=== PATIENT | male | born 1965 | race Caucasian/White ===

== ENCOUNTER 2019-07-24 11:16 | Emergency (ER) | payer SELFPAY ==
[~2019-07-24] VITALS: Ht 187.9 cm; Wt 83.9 kg
[2019-07-24 12:12] LABS: BASO # 0.1 10*3/uL (0.0-0.1); BASO % 0.5 % (0.0-1.0); EOS # 0.4 10*3/uL (0.0-0.4); EOS % 4.6 % (1.0-4.0); HEMATOCRIT 41.6 % (42.0-52.0); HEMOGLOBIN 14.1 g/dl (14.0-18.0); LYMPH # 2.3 10*3/uL (1.3-4.4); LYMPH % 24.4 % (27.0-41.0); MEAN CELL VOLUME 98.6 fl (80.0-94.0); MEAN CORPUSCULAR HGB 33.4 pg (27.0-31.0); MEAN CORPUSCULAR HGB CONC 33.9 g/dl (33.0-37.0); MONO # 1.1 10*3/uL (0.1-1.0); MONO % 11.6 % (3.0-9.0); NEUT # 5.6 10*3/uL (2.3-7.9); NEUT % 58.6 % (47.0-73.0); PLATELET COUNT AUTOMATED 372 10*3/uL (130-400); RED BLOOD COUNT 4.22 10*6/uL (4.50-5.90); RED CELL DISTRI WIDTH 14.6 % (0-14.5); WHITE BLOOD COUNT 9.5 10*3/uL (4.8-10.8)
[2019-07-24 12:36] LABS: ALBUMIN 3.5 gm/dl (3.1-4.5); ALKALINE PHOSPHATASE 104 U/L (45-117); BUN 11 mg/dl (7-24); CHLORIDE 102 mmol/L (98-107); CREATININE 0.71 mg/dL (0.70-1.30); POTASSIUM 4.4 mmol/L (3.5-5.1); SGOT/AST 24 IU/L (3-35); SGPT/ALT 33 U/L (12-78); SODIUM 135 mmol/L (136-145); TOTAL PROTEIN 7.1 gm/dL (6.4-8.2)
[2019-07-24 12:39] LABS: TROPONIN I < 0.015 ng/ml (<0.045)
== END 2019-07-24 14:21 | disposition home or self-care (01) ==
LOC: ED 11:16
PROVIDERS: Nurse Practitioner Family
DX: S00.212A Abrasion of left eyelid and periocular area, initial encounter (principal); R42 Dizziness and giddiness; W22.8XXA Striking against or struck by other objects, initial encounter; Y93.H2 Activity, gardening and landscaping; Y92.89 Other specified places as the place of occurrence of the external cause; Y99.8 Other external cause status

== ENCOUNTER → 2020-04-26 | Outpatient (CLI) | payer OTHER ==
[2020-04-26 09:24] LABS: HEMATOCRIT 43.1 % (42.0-52.0); MEAN CELL VOLUME 98.4 fl (80.0-94.0); MEAN CORPUSCULAR HGB 33.1 pg (27.0-31.0); MEAN CORPUSCULAR HGB CONC 33.6 g/dl (33.0-37.0); MEAN PLATELET VOLUME 10.4 fl (9.6-12.3); RED BLOOD COUNT 4.38 10*6/uL (4.50-5.90); RED CELL DISTRI WIDTH 14.1 % (0-14.5); WHITE BLOOD COUNT 13.9 10*3/uL (4.8-10.8)
[2020-04-26 09:49] LABS: ALBUMIN 3.5 gm/dl (3.1-4.5); BUN 11 mg/dl (7-24); CHLORIDE 99 mmol/L (98-107); CHOLESTEROL 218 mg/dL (<200); CREATININE 0.78 mg/dL (0.70-1.30); GAMMA GLUTAMYL TRANSPEPTIDASE 59 U/L (15-85); HDL CHOLESTEROL 69 mg/dl (40-60); LDL CHOLESTEROL 134 mg/dL (9-159); POTASSIUM 4.7 mmol/L (3.5-5.1); SGOT/AST 22 IU/L (3-35); SGPT/ALT 28 U/L (12-78); SODIUM 134 mmol/L (136-145); TOTAL PROTEIN 7.5 gm/dL (6.4-8.2); TRIGLYCERIDES 74 mg/dl (<150); VLDL CHOLESTEROL 15 mg/dL (6-40)
[2020-04-26 09:55] LABS: ALKALINE PHOSPHATASE 131 U/L (45-117); FREE T4 1.12 ng/dl (0.76-1.46)
== END | disposition home or self-care (01) ==
LOC: LAB 08:38
PROVIDERS: Family Medicine
DX: E10.9 Type 1 diabetes mellitus without complications (principal); E78.00 Pure hypercholesterolemia, unspecified; E55.9 Vitamin D deficiency, unspecified; R53.83 Other fatigue

== ENCOUNTER → 2020-04-27 | Outpatient (CLI) | payer OTHER | END | disposition home or self-care (01) | LOC: LAB 10:43 | PROVIDERS: Family Medicine | DX: E11.9 Type 2 diabetes mellitus without complications (principal); R53.83 Other fatigue; E55.9 Vitamin D deficiency, unspecified; E78.00 Pure hypercholesterolemia, unspecified ==

== ENCOUNTER → 2020-05-28 | Outpatient (CLI) | payer OTHER | END | disposition home or self-care (01) | LOC: RAD 12:19 | DX: M54.5 Low back pain (principal) ==

== ENCOUNTER → 2020-07-10 | Outpatient (CLI) | payer OTHER | END | disposition home or self-care (01) | LOC: RAD 12:27 | PROVIDERS: ATTEND Family Medicine | DX: G89.11 Acute pain due to trauma (principal) ==

== ENCOUNTER → 2020-09-18 | Outpatient (CLI) | payer OTHER | END | disposition home or self-care (01) | LOC: COVID19 12:31 | PROVIDERS: ATTEND Family Medicine | DX: U07.1 COVID-19 (principal) ==

== ENCOUNTER → 2020-10-29 | Outpatient (CLI) | payer OTHER | END | disposition home or self-care (01) | LOC: RAD 08:37 | PROVIDERS: ATTEND Family Medicine | DX: R06.02 Shortness of breath (principal); R05 Cough; R06.2 Wheezing; Z86.16 Personal history of COVID-19 ==

== ENCOUNTER 2021-05-20 06:03 | Emergency (ER) | payer OTHER ==
[~2021-05-20] VITALS: Ht 187.9 cm; Wt 86.2 kg
[2021-05-20] MEDS ORDERED: NAPROXEN250 MG PO (06:57)
[2021-05-20] MEDS ORDERED: METHOCARBAMOL750 M1 PO (06:57)
[2021-07-02] MEDS ORDERED: ASPIRIN ADULT L81 M1 PO (08:34)
[2021-07-02] MEDS ORDERED: LIPITOR40 MG PO (08:34)
[2021-07-02] MEDS ORDERED: CALCIUM 600+D1 EAC1 PO (08:34)
[2021-07-02] MEDS ORDERED: CHOLESTYRAMINE378 GM PO (08:35)
[2021-07-02] MEDS ORDERED: D3-200050 MCG PO (08:35)
[2021-07-02] MEDS ORDERED: VITAMIN B-122000 MCG PO (08:36)
[2021-07-02] MEDS ORDERED: FEXOFENADINE H180 M1 PO (08:37)
[2021-07-02] MEDS ORDERED: NEURONTIN300 MG PO (08:37)
[2021-07-02] MEDS ORDERED: LEVOTHYROXINE100 MC2 PO (08:38)
[2021-07-02] MEDS ORDERED: OMEPRAZOLE MAGN20 MG PO (08:40)
[2021-07-02] MEDS ORDERED: LISINOPRIL20 MG PO (08:40)
[2021-07-02] MEDS ORDERED: CIALIS2.5 MG PO (08:42)
== END 2021-05-20 07:07 | disposition home or self-care (01) ==
LOC: ED 06:03
DX: S29.012A Strain of muscle and tendon of back wall of thorax, initial encounter (principal); W19.XXXA Unspecified fall, initial encounter; Y93.89 Activity, other specified; Y92.89 Other specified places as the place of occurrence of the external cause; Y99.8 Other external cause status

== ENCOUNTER → 2021-07-02 | Outpatient (CLI) | payer OTHER ==
[~2021-07-02] MED LIST: ASPIRIN ADULT L81 M1 PO; CALCIUM 600+D1 EAC1 PO; CHOLESTYRAMINE378 GM PO; CIALIS2.5 MG PO; D3-200050 MCG PO; FEXOFENADINE H180 M1 PO; LEVOTHYROXINE100 MC2 PO; LIPITOR40 MG PO; LISINOPRIL20 MG PO; METHOCARBAMOL750 M1 PO; NAPROXEN250 MG PO; NEURONTIN300 MG PO; OMEPRAZOLE MAGN20 MG PO; VITAMIN B-122000 MCG PO
[2021-07-02 10:26] LABS: BASO # 0.1 10*3/uL (0.0-0.1); BASO % 0.5 % (0.0-1.0); EOS # 0.6 10*3/uL (0.0-0.4); EOS % 4.8 % (1.0-4.0); HEMATOCRIT 42.7 % (42.0-52.0); LYMPH # 1.7 10*3/uL (1.3-4.4); LYMPH % 13.1 % (27.0-41.0); MEAN CELL VOLUME 94.9 fl (80.0-94.0); MEAN CORPUSCULAR HGB 32.4 pg (27.0-31.0); MEAN CORPUSCULAR HGB CONC 34.2 g/dl (33.0-37.0); MEAN PLATELET VOLUME 9.9 fl (9.6-12.3); MONO # 1.3 10*3/uL (0.1-1.0); MONO % 10.3 % (3.0-9.0); PLATELET COUNT AUTOMATED 409 10*3/uL (130-400); WHITE BLOOD COUNT 12.6 10*3/uL (4.8-10.8)
[2021-07-02 10:31] LABS: ALBUMIN 3.2 gm/dl (3.1-4.5); BUN 8 mg/dl (7-24); CHLORIDE 98 mmol/L (98-107); CHOLESTEROL 212 mg/dL (<200); CREATININE 0.74 mg/dL (0.70-1.30); SGOT/AST 29 IU/L (3-35); SGPT/ALT 32 U/L (12-78); SODIUM 132 mmol/L (136-145); TOTAL PROTEIN 7.3 gm/dL (6.4-8.2); TRIGLYCERIDES 98 mg/dl (<150)
[2021-07-02 10:34] LABS: ALKALINE PHOSPHATASE 138 U/L (45-117); LDL CHOLESTEROL 129 mg/dL (9-159)
== END | disposition home or self-care (01) ==
LOC: CARD 00:01 → LAB 00:01 → CARD 07:00
PROVIDERS: ATTEND Internal Medicine Cardiovascular Disease
DX: I05.0 Rheumatic mitral stenosis (principal); R94.31 Abnormal electrocardiogram [ECG] [EKG]

== ENCOUNTER → 2021-10-16 | Outpatient (CLI) | payer OTHER | END | disposition home or self-care (01) | LOC: COVID19 15:12 | PROVIDERS: ATTEND Podiatrist Foot & Ankle Surgery | DX: Z11.52 Encounter for screening for COVID-19 (principal) ==

== ENCOUNTER → 2021-11-29 | Outpatient (CLI) | payer OTHER | END | disposition home or self-care (01) | LOC: RAD 12:44 | PROVIDERS: ATTEND Family Medicine | DX: M50.323 Other cervical disc degeneration at C6-C7 level (principal); M25.511 Pain in right shoulder; G89.29 Other chronic pain; R05.9 Cough, unspecified; R09.89 Other specified symptoms and signs involving the circulatory and respiratory systems ==

== ENCOUNTER → 2022-02-13 | Outpatient (CLI) | payer OTHER ==
[2022-02-13 09:43] LABS: BUN 5 mg/dl (7-24); CHLORIDE 99 mmol/L (98-107); CREATININE 0.73 mg/dL (0.70-1.30); POTASSIUM 5.1 mmol/L (3.5-5.1); SODIUM 134 mmol/L (136-145)
== END | disposition home or self-care (01) ==
LOC: LAB 08:21
PROVIDERS: ATTEND Internal Medicine Endocrinology, Diabetes & Metabolism
DX: E27.8 Other specified disorders of adrenal gland (principal)

== ENCOUNTER → 2022-02-14 | Outpatient (CLI) | payer OTHER | END | disposition home or self-care (01) | LOC: LAB 00:02 | PROVIDERS: ATTEND Internal Medicine Endocrinology, Diabetes & Metabolism | DX: E27.8 Other specified disorders of adrenal gland (principal) ==

== ENCOUNTER → 2022-03-14 | Outpatient (CLI) | payer OTHER | END | disposition home or self-care (01) | LOC: LAB 07:59 | PROVIDERS: ATTEND Internal Medicine Endocrinology, Diabetes & Metabolism | DX: E27.8 Other specified disorders of adrenal gland (principal) ==

== ENCOUNTER → 2022-04-03 | Outpatient (CLI) | payer OTHER | END | disposition home or self-care (01) | LOC: RAD 11:57 | PROVIDERS: ATTEND Family Medicine | DX: M79.89 Other specified soft tissue disorders (principal); L02.612 Cutaneous abscess of left foot ==

== ENCOUNTER → 2022-04-11 | Outpatient (CLI) | payer OTHER | END | disposition home or self-care (01) | LOC: LAB 09:49 | PROVIDERS: ATTEND Internal Medicine Endocrinology, Diabetes & Metabolism | DX: E27.8 Other specified disorders of adrenal gland (principal) ==

== ENCOUNTER → 2022-07-04 | Outpatient (CLI) | payer OTHER ==
[2022-07-08 21:06] LABS: NORMETANEPHRINE, PLASMA 55.4 pg/mL (0.0-244.0)
[2022-07-09 07:30] LABS: METANEPHRINE, PLASMA <10.0 pg/mL (0.0-88.0)
[2022-07-11 04:07] LABS: ALDOSTERONE, SERUM 2.6 ng/dL (0.0-30.0)
== END | disposition home or self-care (01) ==
LOC: LAB 07:59
PROVIDERS: ATTEND Surgery
DX: E27.9 Disorder of adrenal gland, unspecified (principal); D35.01 Benign neoplasm of right adrenal gland; D35.02 Benign neoplasm of left adrenal gland

== ENCOUNTER → 2022-07-06 | Outpatient (CLI) | payer OTHER ==
[2022-07-09 01:06] LABS: NORMETANEPHRINE URINE 152 ug/L (Undefined); URINE METANEPHRINE 31 ug/L (Undefined); URINE METANEPHRINE, 24 HR 93 ug/24 hr (58-276); URINE NORMETANEPHRINE 24HR 456 ug/24 hr (156-729)
[2022-07-15 16:07] LABS: CORTISOL, FREE URINE 20 ug/L (Undefined); CORTISOL, FREE, UG/24HR, URINE 60 ug/24 hr (5-64)
== END | disposition home or self-care (01) ==
LOC: LAB 10:37
PROVIDERS: ATTEND Surgery
DX: D35.01 Benign neoplasm of right adrenal gland (principal); D35.02 Benign neoplasm of left adrenal gland; E27.9 Disorder of adrenal gland, unspecified

== ENCOUNTER → 2022-07-08 | Outpatient (CLI) | payer OTHER | END | disposition home or self-care (01) | LOC: LAB 09:24 | PROVIDERS: ATTEND Surgery | DX: E27.9 Disorder of adrenal gland, unspecified (principal) ==

== ENCOUNTER → 2022-07-20 | Outpatient (CLI) | payer OTHER | END | disposition home or self-care (01) | LOC: LAB 03:00 | PROVIDERS: ATTEND Surgery | DX: E24.9 Cushing's syndrome, unspecified (principal) ==

== ENCOUNTER → 2022-07-21 | Outpatient (CLI) | payer OTHER | END | disposition home or self-care (01) | LOC: LAB 03:00 | PROVIDERS: ATTEND Surgery | DX: E24.9 Cushing's syndrome, unspecified (principal) ==

== ENCOUNTER → 2022-07-22 | Outpatient (CLI) | payer OTHER | END | disposition home or self-care (01) | LOC: LAB 03:00 | PROVIDERS: ATTEND Surgery | DX: E24.9 Cushing's syndrome, unspecified (principal) ==

== ENCOUNTER 2022-08-03 13:36 | Emergency (ER) | payer OTHER ==
[2022-08-03 15:10] LABS: BASO # 0.1 10*3/uL (0.0-0.1); BASO % 0.4 % (0.0-1.0); EOS # 0.4 10*3/uL (0.0-0.4); EOS % 3.1 % (1.0-4.0); HEMATOCRIT 40.8 % (42.0-52.0); LYMPH # 1.6 10*3/uL (1.3-4.4); LYMPH % 14.1 % (27.0-41.0); MEAN CELL VOLUME 92.5 fl (80.0-94.0); MEAN CORPUSCULAR HGB 31.3 pg (27.0-31.0); MEAN CORPUSCULAR HGB CONC 33.8 g/dl (33.0-37.0); MEAN PLATELET VOLUME 9.5 fl (9.6-12.3); MONO # 1.2 10*3/uL (0.1-1.0); MONO % 10.2 % (3.0-9.0); NEUT # 8.2 10*3/uL (2.3-7.9); NEUT % 71.9 % (47.0-73.0); PLATELET COUNT AUTOMATED 440 10*3/uL (130-400); RED BLOOD COUNT 4.41 10*6/uL (4.50-5.90); RED CELL DISTRI WIDTH 14.9 % (0-14.5); WHITE BLOOD COUNT 11.5 10*3/uL (4.8-10.8)
[2022-08-03 15:25] LABS: ALKALINE PHOSPHATASE 154 U/L (45-117); BUN 3 mg/dl (7-24); CHLORIDE 101 mmol/L (98-107); CREATININE 0.64 mg/dL (0.70-1.30); LIPASE 45 U/L (73-393); POTASSIUM 4.4 mmol/L (3.5-5.1); SGOT/AST 24 IU/L (3-35); SGPT/ALT 31 U/L (12-78); SODIUM 136 mmol/L (136-145); TOTAL PROTEIN 7.2 gm/dL (6.4-8.2)
[2022-08-03 16:33] LABS: BILIRUBIN Negative (Negative); BLOOD Negative (Negative); CLARITY Clear (Clear); COLOR Yellow (Yellow); GLUCOSE 3+ (Negative); KETONE Negative (Negative); LEUKO ESTERASE Negative (Negative); NITRITE Negative (Negative); SPECIFIC GRAVITY 1.015 (1.001-1.030); UROBILINOGEN 0.2 E.U./dl (0.0-1.0)
[2022-08-03 16:43] LABS: EPITHELIAL CELLS 0-2; WBC 0-2 wbc/hpf (0-5)
== END 2022-08-03 18:08 | disposition home or self-care (01) ==
LOC: ED 13:36
PROVIDERS: Emergency Medicine
DX: K91.89 Other postprocedural complications and disorders of digestive system (principal); K56.7 Ileus, unspecified; Z98.890 Other specified postprocedural states; Z79.899 Other long term (current) drug therapy; Z79.82 Long term (current) use of aspirin; Z90.89 Acquired absence of other organs

== ENCOUNTER → 2022-08-11 | Outpatient (CLI) | payer OTHER ==
[2022-08-11 15:48] LABS: FREE T4 1.19 ng/dl (0.76-1.46)
[2022-08-11 15:55] LABS: THYROID STIM HORMONE (HS) 2.27 uIU/ml (0.358-4.75)
== END | disposition home or self-care (01) ==
LOC: LAB 14:50
PROVIDERS: ATTEND Internal Medicine Endocrinology, Diabetes & Metabolism
DX: E10.65 Type 1 diabetes mellitus with hyperglycemia (principal); E03.9 Hypothyroidism, unspecified

== ENCOUNTER → 2022-09-12 | Outpatient (CLI) | payer OTHER ==
[2022-09-12 08:28] LABS: BUN 8 mg/dl (7-24); CHLORIDE 99 mmol/L (98-107); CREATININE 0.73 mg/dL (0.70-1.30); POTASSIUM 4.5 mmol/L (3.5-5.1); SODIUM 135 mmol/L (136-145)
== END | disposition home or self-care (01) ==
LOC: LAB 07:46
PROVIDERS: ATTEND Internal Medicine Endocrinology, Diabetes & Metabolism
DX: E10.65 Type 1 diabetes mellitus with hyperglycemia (principal); E27.8 Other specified disorders of adrenal gland

== ENCOUNTER → 2022-10-10 | Outpatient (CLI) | payer MEDICARE, MEDICAID | END | disposition home or self-care (01) | LOC: LAB 08:01 | PROVIDERS: ATTEND Internal Medicine Endocrinology, Diabetes & Metabolism | DX: E27.8 Other specified disorders of adrenal gland (principal); Z79.899 Other long term (current) drug therapy ==

== ENCOUNTER 2023-02-26 10:13 | Emergency (ER) | payer MEDICARE, MEDICAID ==
[~2023-02-26] VITALS: Ht 187.9 cm; Wt 90.7 kg
[2023-02-26] MEDS ORDERED: SERTRALINE HYD100 MG PO (10:31)
[2023-02-26] MEDS ORDERED: HYDROCODONE-AC1 EAC1 PO (12:18)
== END 2023-02-26 12:23 | disposition home or self-care (01) ==
LOC: ED 10:13
DX: S22.41XA Multiple fractures of ribs, right side, initial encounter for closed fracture (principal); Z79.899 Other long term (current) drug therapy; Z79.82 Long term (current) use of aspirin; Z90.89 Acquired absence of other organs; Z98.890 Other specified postprocedural states; W18.39XA Other fall on same level, initial encounter; Y93.89 Activity, other specified; Y92.89 Other specified places as the place of occurrence of the external cause; Y99.8 Other external cause status

== ENCOUNTER 2023-08-13 23:59 | Emergency (ER) | payer MEDICARE, MEDICAID ==
[~2023-08-13] VITALS: Ht 187.9 cm; Wt 83.9 kg
[~2023-08-13 23:59] MED LIST changes: +CILOSTAZOL100 MG PO; +HYDROCODONE-AC1 EAC1 PO; +NORVASC5 MG PO; +OMNICEF300 MG PO; +PREDNISONE50 MG PO; +SERTRALINE HYD100 MG PO; +VITAMIN C500 M4 PO; +ZITHROMAX250 MG PO
== END 2023-08-14 05:20 | disposition home or self-care (01) ==
LOC: ED 23:59
DX: S93.402A Sprain of unspecified ligament of left ankle, initial encounter (principal); E11.9 Type 2 diabetes mellitus without complications; I10 Essential (primary) hypertension; E78.00 Pure hypercholesterolemia, unspecified; Z96.41 Presence of insulin pump (external) (internal); Z98.890 Other specified postprocedural states; F17.210 Nicotine dependence, cigarettes, uncomplicated; W01.0XXA Fall on same level from slipping, tripping and stumbling without subsequent striking against object, initial encounter; Y93.89 Activity, other specified; Y92.009 Unspecified place in unspecified non-institutional (private) residence as the place of occurrence of the external cause; Y99.8 Other external cause status

== ENCOUNTER → 2023-09-30 | Outpatient (CLI) | payer MEDICARE, MEDICAID ==
[2023-09-30 11:34] LABS: BASO # 0.1 10*3/uL (0.0-0.1); BASO % 0.6 % (0.0-1.0); EOS # 0.5 10*3/uL (0.0-0.4); EOS % 5.5 % (1.0-4.0); LYMPH # 1.9 10*3/uL (1.3-4.4); LYMPH % 19.8 % (27.0-41.0); MEAN CELL VOLUME 88.4 fl (80.0-94.0); MEAN CORPUSCULAR HGB 29.9 pg (27.0-31.0); MEAN CORPUSCULAR HGB CONC 33.8 g/dl (33.0-37.0); MEAN PLATELET VOLUME 9.8 fl (9.6-12.3); MONO % 10.6 % (3.0-9.0); NEUT # 6.2 10*3/uL (2.3-7.9); NEUT % 63.2 % (47.0-73.0); PLATELET COUNT AUTOMATED 484 10*3/uL (130-400); RED BLOOD COUNT 4.41 10*6/uL (4.50-5.90); RED CELL DISTRI WIDTH 16.1 % (0-14.5); WHITE BLOOD COUNT 9.8 10*3/uL (4.8-10.8)
[2023-09-30 11:53] LABS: ALKALINE PHOSPHATASE 140 U/L (46-116); BUN 8 mg/dl (9-23); CHLORIDE 105 mmol/L (98-107); POTASSIUM 4.3 mmol/L (3.4-5.1); SGPT/ALT 28 U/L (5-49); TOTAL PROTEIN 6.9 gm/dL (6.0-8.0)
== END | disposition home or self-care (01) ==
LOC: LAB 10:58
PROVIDERS: ATTEND Nurse Practitioner
DX: E11.9 Type 2 diabetes mellitus without complications (principal); K74.60 Unspecified cirrhosis of liver; K86.9 Disease of pancreas, unspecified; D37.8 Neoplasm of uncertain behavior of other specified digestive organs; I85.00 Esophageal varices without bleeding; K74.00 Hepatic fibrosis, unspecified

== ENCOUNTER → 2024-07-27 | Outpatient (CLI) | payer MEDICARE, MEDICAID ==
[2024-07-27 11:09] LABS: FREE T4 1.41 ng/dl (0.89-1.76)
== END | disposition home or self-care (01) ==
LOC: LAB 10:11
PROVIDERS: Internal Medicine Endocrinology, Diabetes & Metabolism; ATTEND Nurse Practitioner
DX: E11.9 Type 2 diabetes mellitus without complications (principal); E03.9 Hypothyroidism, unspecified

== ENCOUNTER 2024-09-22 17:13 | Inpatient (IN) | payer MEDICARE ==
[~2024-09-22] VITALS: Ht 185.4 cm; Wt 93.6 kg
[2024-09-22 17:18] VITALS: BP 127/58
[2024-09-22] MEDS ORDERED: fentaNYL CITRATE/PF 50 MCG/ML SYRINGE IV ONE (17:55)
[2024-09-22] MEDS ORDERED: SODIUM CHLORIDE 0.9% 1,000 ML IV ONE (17:55)
[2024-09-22 18:07] LABS: BASO # 0.1 10*3/uL (0.0-0.1); BASO % 0.5 % (0.0-1.0); EOS # 0.5 10*3/uL (0.0-0.4); HEMATOCRIT 38.2 % (42.0-52.0); MEAN CELL VOLUME 90.5 fl (80.0-94.0); MEAN CORPUSCULAR HGB 30.1 pg (27.0-31.0); MEAN CORPUSCULAR HGB CONC 33.2 g/dl (33.0-37.0); MEAN PLATELET VOLUME 9.3 fl (9.6-12.3); MONO # 0.9 10*3/uL (0.1-1.0); MONO % 10.2 % (3.0-9.0); NEUT # 6.4 10*3/uL (2.3-7.9); NEUT % 69.2 % (47.0-73.0); PLATELET COUNT AUTOMATED 447 10*3/uL (130-400); RED BLOOD COUNT 4.22 10*6/uL (4.50-5.90); RED CELL DISTRI WIDTH 16.2 % (0-14.5); WHITE BLOOD COUNT 9.2 10*3/uL (4.8-10.8)
[2024-09-22] MEDS ORDERED: ACETAMINOPHEN 325 MG TAB PO PRN (18:10)
[2024-09-22] MEDS ORDERED: Magnesium Hydroxide 30 ML UDC PO PRN (18:10)
[2024-09-22] MEDS ORDERED: BISACODYL 10 MG SUPP R PRN (18:10)
[2024-09-22] MEDS ORDERED: TEMAZEPAM 15 MG CAP PO PRN (18:10)
[2024-09-22] MEDS ORDERED: Acetaminophen/Hydrocodone 5 MG/325 MG TABLET PO PRN (18:10)
[2024-09-22] MEDS ORDERED: BISACODYL 5 MG TAB PO PRN (18:10)
[2024-09-22] MEDS ORDERED: MORPHINE Sulfate 2 MG/ML SYR IV PRN (18:10)
[2024-09-22] MEDS ORDERED: Ondansetron Hydrochloride 4 MG/2 ML VIAL IV PRN (18:10)
[2024-09-22] MEDS ORDERED: ACETAMINOPHEN 650 MG SUPP R PRN (18:10)
[2024-09-22] MEDS ORDERED: MULTIVITAMINS1 EAC6 PO (18:12)
[2024-09-22] MEDS ORDERED: DEXTROSE 10 % IN WATER 250 ML IV PRN (18:20)
[2024-09-22 18:22] LABS: BUN 8 mg/dl (9-23); CHLORIDE 99 mmol/L (98-107); POTASSIUM 4.5 mmol/L (3.4-5.1)
[2024-09-22 21:30] VITALS: BP 142/56
[2024-09-22] MEDS ORDERED: INSULIN LISPRO 1 UNIT/0.01 ML SQ SCH (22:00)
[2024-09-22] MEDS ORDERED: ADMELOG100 UNIT/1 SQ (22:02)
[2024-09-23] VITALS (10 sets, daily range): BP systolic 114–176; BP diastolic 46–79
[2024-09-23] MEDS ORDERED: Pantoprazole Sodium 40 MG TAB PO SCH (06:00)
[2024-09-23] MEDS ORDERED: Levothyroxine Sodium 112 MCG TAB PO SCH (06:00)
[2024-09-23 06:08] LABS: ALKALINE PHOSPHATASE 110 U/L (46-116); BUN 10 mg/dl (9-23); CHLORIDE 101 mmol/L (98-107); CHOLESTEROL 107 mg/dL (<200); LDL CHOLESTEROL 49 mg/dL (9-159); POTASSIUM 4.2 mmol/L (3.4-5.1); SGPT/ALT 20 U/L (5-49); TOTAL PROTEIN 6.2 gm/dL (6.0-8.0); TRIGLYCERIDES 61 mg/dl (<150)
[2024-09-23 06:12] LABS: BASO % 0.3 % (0.0-1.0); EOS # 0.2 10*3/uL (0.0-0.4); EOS % 1.7 % (1.0-4.0); HEMATOCRIT 34.6 % (42.0-52.0); MEAN CELL VOLUME 89.9 fl (80.0-94.0); MEAN CORPUSCULAR HGB 30.1 pg (27.0-31.0); MEAN CORPUSCULAR HGB CONC 33.5 g/dl (33.0-37.0); MEAN PLATELET VOLUME 10.5 fl (9.6-12.3); MONO # 1.1 10*3/uL (0.1-1.0); MONO % 10.8 % (3.0-9.0); NEUT # 6.9 10*3/uL (2.3-7.9); NEUT % 70.6 % (47.0-73.0); PLATELET COUNT AUTOMATED 398 10*3/uL (130-400); RED BLOOD COUNT 3.85 10*6/uL (4.50-5.90); RED CELL DISTRI WIDTH 16.4 % (0-14.5); WHITE BLOOD COUNT 9.8 10*3/uL (4.8-10.8)
[2024-09-23 06:36] LABS: VITAMIN D, 25-HYDROXY 70.4 ng/mL (30-100)
[2024-09-23] MEDS ORDERED: TRANEXAMIC ACID IN NACL,ISO-OS 100 ML IV ONE ×2 (08:00→08:52)
[2024-09-23] MEDS ORDERED: ACETAMINOPHEN 100 ML IV ONE (08:00)
[2024-09-23] MEDS ORDERED: ceFAZolin sodium/sodium chlor 20 ML IV ONE ×2 (08:00→08:52)
[2024-09-23] MEDS ORDERED: Lactated Ringer's Solution 1,000 ML IV ONE ×2 (08:00→09:23)
[2024-09-23] MEDS ORDERED: Ropivacaine Hydrochloride 5 MG/ML 20 ML AMP IJ ONE (08:15)
[2024-09-23] MEDS ORDERED: Bupivacaine Hydrochloride/Ep 10 ML VIAL ONE (08:23)
[2024-09-23] MEDS ORDERED: ATORVASTATIN CALCIUM 40 MG TABLET PO SCH (10:00)
[2024-09-23] MEDS ORDERED: Cholecalciferol 2,000 UNIT TABLET (50 MCG) PO SCH (10:00)
[2024-09-23] MEDS ORDERED: Sertraline Hydrochloride 50 MG TAB PO SCH (10:00)
[2024-09-23] MEDS ORDERED: LISINOPRIL 20 MG TAB PO SCH (10:00)
[2024-09-23] MEDS ORDERED: CILOSTAZOL 100 MG TAB PO SCH ×2 (10:00→10:23)
[2024-09-23] MEDS ORDERED: LORazepam 0.5 MG TAB PO PRN (12:25)
[2024-09-23] MEDS ORDERED: Acetaminophen/Oxycodone Hydr 7.5 MG/325 MG TABLET PO PRN (13:35)
[2024-09-23] MEDS ORDERED: ceFAZolin sodium 1 GM in SYRINGE INFUSION 10 ML IV SCH (14:00)
[2024-09-23] MEDS ORDERED: ASPIRIN ENTERIC COATED 81 MG TAB PO SCH (18:00)
[2024-09-24] VITALS: BP 131/50
[2024-09-24 06:37] LABS: BUN 13 mg/dl (9-23); CHLORIDE 100 mmol/L (98-107); POTASSIUM 3.9 mmol/L (3.4-5.1)
[2024-09-24 07:39] LABS: BASO % 0.3 % (0.0-1.0); EOS # 0.3 10*3/uL (0.0-0.4); EOS % 2.6 % (1.0-4.0); HEMATOCRIT 32.2 % (42.0-52.0); MEAN CELL VOLUME 89.4 fl (80.0-94.0); MEAN CORPUSCULAR HGB 30.6 pg (27.0-31.0); MEAN CORPUSCULAR HGB CONC 34.2 g/dl (33.0-37.0); MEAN PLATELET VOLUME 11.2 fl (9.6-12.3); MONO % 9.8 % (3.0-9.0); NEUT # 7.6 10*3/uL (2.3-7.9); NEUT % 75.5 % (47.0-73.0); PLATELET COUNT AUTOMATED 344 10*3/uL (130-400); RED CELL DISTRI WIDTH 16.1 % (0-14.5)
[2024-09-24 08:00] VITALS: BP 120/98
[2024-09-24] MEDS ORDERED: DEXTROSE 10 % IN WATER 250 ML IV PRN (08:35)
[2024-09-24] MEDS ORDERED: INSULIN PUMP (PT'S PUMP FROM HOME) SC SCH (09:25)
[2024-09-24] MEDS ORDERED: INSULIN LISPRO 1 UNIT/0.01 ML SQ SCH (11:30)
[2024-09-24 12:00] VITALS: BP 119/84
[2024-09-24] MEDS ORDERED: Acetaminophen/Oxycodone Hydr 7.5 MG/325 MG TABLET PO PRN (13:44)
[2024-09-24] MEDS ORDERED: Albuterol Sulf/Ipratropium 3 ML VIAL NEB PRN (13:45)
[2024-09-24 16:00] VITALS: BP 99/45
[2024-09-24 20:00] VITALS: BP 102/54; BP 91/45
[2024-09-25] VITALS: BP 130/45
[2024-09-25 06:40] LABS: BASO % 0.3 % (0.0-1.0); EOS # 0.2 10*3/uL (0.0-0.4); EOS % 2.4 % (1.0-4.0); MEAN CELL VOLUME 88.8 fl (80.0-94.0); MEAN CORPUSCULAR HGB 30.1 pg (27.0-31.0); MEAN CORPUSCULAR HGB CONC 33.9 g/dl (33.0-37.0); MEAN PLATELET VOLUME 10.5 fl (9.6-12.3); MONO # 0.7 10*3/uL (0.1-1.0); MONO % 9.8 % (3.0-9.0); NEUT # 5.6 10*3/uL (2.3-7.9); NEUT % 73.7 % (47.0-73.0); PLATELET COUNT AUTOMATED 330 10*3/uL (130-400); RED BLOOD COUNT 3.49 10*6/uL (4.50-5.90); RED CELL DISTRI WIDTH 16.2 % (0-14.5); WHITE BLOOD COUNT 7.6 10*3/uL (4.8-10.8)
[2024-09-25 06:59] LABS: BUN 11 mg/dl (9-23); CHLORIDE 99 mmol/L (98-107); POTASSIUM 3.9 mmol/L (3.4-5.1)
[2024-09-25 08:00] VITALS: BP 144/68
[2024-09-25 11:52] VITALS: BP 141/56
[2024-09-25] MEDS ORDERED: Midazolam Hydrochloride 2 MG/2 ML VIAL IV ONE (14:16)
[2024-09-25] MEDS ORDERED: PROPOFOL 200 MG/20 ML VIAL IV ONE (14:16)
[2024-09-25] MEDS ORDERED: SEVOFLURANE 250 ML BOT INH ONE (14:16)
[2024-09-25] MEDS ORDERED: MAGNESIUM SULFATE 1 GM/2 ML VIAL IV ONE (14:16)
[2024-09-25] MEDS ORDERED: Phenylephrine Hydrochloride 1 MG/10 ML SYRINGE IV ONE (14:16)
[2024-09-25] MEDS ORDERED: Ketamine Hydrochloride 500 MG/10 ML VIAL IV ONE (14:16)
[2024-09-25] MEDS ORDERED: Ketorolac Tromethamine 30 MG/ML VIAL IV ONE (14:16)
[2024-09-25] MEDS ORDERED: SUGAMMADEX SODIUM 200 MG/2 ML VIAL IV ONE (14:16)
[2024-09-25] MEDS ORDERED: ROCURONIUM BROMIDE 50 MG/5 ML SYRINGE IV ONE (14:16)
[2024-09-25 16:00] VITALS: BP 152/55
[2024-09-25 20:00] VITALS: BP 159/68
[2024-09-26] VITALS: BP 141/82
[2024-09-26 06:17] LABS: BUN 10 mg/dl (9-23); CHLORIDE 96 mmol/L (98-107)
[2024-09-26 06:39] LABS: BASO % 0.1 % (0.0-1.0); EOS # 0.1 10*3/uL (0.0-0.4); EOS % 1.1 % (1.0-4.0); HEMATOCRIT 29.7 % (42.0-52.0); MEAN CELL VOLUME 88.4 fl (80.0-94.0); MEAN CORPUSCULAR HGB 30.4 pg (27.0-31.0); MEAN CORPUSCULAR HGB CONC 34.3 g/dl (33.0-37.0); MEAN PLATELET VOLUME 11.1 fl (9.6-12.3); MONO # 0.8 10*3/uL (0.1-1.0); MONO % 8.2 % (3.0-9.0); NEUT % 81.3 % (47.0-73.0); PLATELET COUNT AUTOMATED 330 10*3/uL (130-400); RED BLOOD COUNT 3.36 10*6/uL (4.50-5.90); WHITE BLOOD COUNT 9.8 10*3/uL (4.8-10.8)
[2024-09-26 08:00] VITALS: BP 154/65
[2024-09-26 12:00] VITALS: BP 135/59
[2024-09-26 16:00] VITALS: BP 132/57
[2024-09-27] VITALS: BP 110/54
[2024-09-27 06:30] LABS: BASO % 0.2 % (0.0-1.0); EOS # 0.3 10*3/uL (0.0-0.4); EOS % 3.1 % (1.0-4.0); HEMATOCRIT 30.2 % (42.0-52.0); MEAN CELL VOLUME 88.8 fl (80.0-94.0); MEAN CORPUSCULAR HGB 30.3 pg (27.0-31.0); MEAN CORPUSCULAR HGB CONC 34.1 g/dl (33.0-37.0); MEAN PLATELET VOLUME 11.1 fl (9.6-12.3); MONO # 1.2 10*3/uL (0.1-1.0); MONO % 12.9 % (3.0-9.0); NEUT # 6.7 10*3/uL (2.3-7.9); NEUT % 72.6 % (47.0-73.0); PLATELET COUNT AUTOMATED 373 10*3/uL (130-400); RED CELL DISTRI WIDTH 15.8 % (0-14.5); WHITE BLOOD COUNT 9.2 10*3/uL (4.8-10.8)
[2024-09-27 06:32] LABS: BUN 17 mg/dl (9-23); CHLORIDE 93 mmol/L (98-107); POTASSIUM 5.1 mmol/L (3.4-5.1)
[2024-09-27 08:00] VITALS: BP 149/63
[2024-09-27] MEDS ORDERED: SODIUM CHLORIDE 1 GM TAB PO SCH (11:00)
[2024-09-27 12:00] VITALS: BP 106/55
[2024-09-27] MEDS ORDERED: OXYCODONE-ACET1 EACH PO (12:24)
[2024-09-27] MEDS ORDERED: SODIUM CHLORI1000 M5 PO (12:24)
== END 2024-09-27 14:10 | DRG 481 ==
LOC: ED 17:13 → EDHOLD 18:03 → 4E 18:03
PROVIDERS: Nurse Practitioner Family; Orthopaedic Surgery; Student in an Organized Health Care Education/Training Program; ADMIT Family Medicine; ATTEND Family Medicine
PROC: 0QS636Z Reposition Right Upper Femur with Intramedullary Internal Fixation Device, Percutaneous Approach (ICD-10-PCS; principal; 2024-09-23)
PROC: 3E0T3BZ Introduction of Anesthetic Agent into Peripheral Nerves and Plexi, Percutaneous Approach (ICD-10-PCS; 2024-09-23)
DX: S72.141A Displaced intertrochanteric fracture of right femur, initial encounter for closed fracture (principal); E87.1 Hypo-osmolality and hyponatremia; E11.40 Type 2 diabetes mellitus with diabetic neuropathy, unspecified; G56.03 Carpal tunnel syndrome, bilateral upper limbs; D64.9 Anemia, unspecified; J44.9 Chronic obstructive pulmonary disease, unspecified; E11.51 Type 2 diabetes mellitus with diabetic peripheral angiopathy without gangrene; F17.210 Nicotine dependence, cigarettes, uncomplicated; K21.9 Gastro-esophageal reflux disease without esophagitis; E03.9 Hypothyroidism, unspecified; E55.9 Vitamin D deficiency, unspecified; F10.11 Alcohol abuse, in remission; W01.0XXA Fall on same level from slipping, tripping and stumbling without subsequent striking against object, initial encounter; I10 Essential (primary) hypertension; I25.10 Atherosclerotic heart disease of native coronary artery without angina pectoris; F41.9 Anxiety disorder, unspecified; Z82.5 Family history of asthma and other chronic lower respiratory diseases; Z83.3 Family history of diabetes mellitus; Z79.899 Other long term (current) drug therapy; Z88.8 Allergy status to other drugs, medicaments and biological substances; Z79.82 Long term (current) use of aspirin; Z79.4 Long term (current) use of insulin; Y93.89 Activity, other specified; Y92.89 Other specified places as the place of occurrence of the external cause; Y99.8 Other external cause status

== ENCOUNTER → 2024-10-11 | Outpatient (CLI) | payer MEDICARE ==
[~2024-10-11] MED LIST changes: +ADMELOG100 UNIT/1 SQ; +MULTIVITAMINS1 EAC6 PO; +OXYCODONE-ACET1 EACH PO; +SODIUM CHLORI1000 M5 PO
== END | disposition home or self-care (01) ==
LOC: ORTHO 02:21
PROVIDERS: ATTEND Orthopaedic Surgery
DX: S72.141A Displaced intertrochanteric fracture of right femur, initial encounter for closed fracture (principal); X58.XXXA Exposure to other specified factors, initial encounter; Y93.89 Activity, other specified; Y92.89 Other specified places as the place of occurrence of the external cause; Y99.8 Other external cause status

== ENCOUNTER → 2024-11-03 | Outpatient (CLI) | payer MEDICARE | END | disposition home or self-care (01) | LOC: RAD 10-30 13:30 | PROVIDERS: ATTEND Orthopaedic Surgery | DX: Z13.820 Encounter for screening for osteoporosis (principal); M81.0 Age-related osteoporosis without current pathological fracture ==

== ENCOUNTER → 2024-11-22 | Outpatient (CLI) | payer MEDICARE | END | disposition home or self-care (01) | LOC: ORTHO 00:50 | PROVIDERS: ATTEND Orthopaedic Surgery | DX: S72.141D Displaced intertrochanteric fracture of right femur, subsequent encounter for closed fracture with routine healing (principal); X58.XXXD Exposure to other specified factors, subsequent encounter ==

== ENCOUNTER → 2024-12-20 | Outpatient (CLI) | payer MEDICARE | END | disposition home or self-care (01) | LOC: ORTHO 11:31 | PROVIDERS: ATTEND Orthopaedic Surgery | DX: S72.141D Displaced intertrochanteric fracture of right femur, subsequent encounter for closed fracture with routine healing (principal); I70.90 Unspecified atherosclerosis; X58.XXXD Exposure to other specified factors, subsequent encounter ==

== ENCOUNTER → 2025-02-15 | Outpatient (CLI) | payer MEDICARE | END | disposition home or self-care (01) | LOC: WOUNDCARE 02:37 | PROVIDERS: ATTEND Nurse Practitioner Family | DX: L89.524 Pressure ulcer of left ankle, stage 4 (principal); L89.620 Pressure ulcer of left heel, unstageable; I87.2 Venous insufficiency (chronic) (peripheral); E10.51 Type 1 diabetes mellitus with diabetic peripheral angiopathy without gangrene; I11.0 Hypertensive heart disease with heart failure; I50.9 Heart failure, unspecified; I25.10 Atherosclerotic heart disease of native coronary artery without angina pectoris; E03.9 Hypothyroidism, unspecified; J44.9 Chronic obstructive pulmonary disease, unspecified; K74.60 Unspecified cirrhosis of liver; F17.210 Nicotine dependence, cigarettes, uncomplicated; Z98.890 Other specified postprocedural states; Z79.82 Long term (current) use of aspirin; Z79.899 Other long term (current) drug therapy ==

== ENCOUNTER → 2025-02-19 | Outpatient (CLI) | payer MEDICARE | END | disposition home or self-care (01) | LOC: US 11:30 | PROVIDERS: ATTEND Orthopaedic Surgery | DX: S81.802A Unspecified open wound, left lower leg, initial encounter (principal); I10 Essential (primary) hypertension; E11.9 Type 2 diabetes mellitus without complications; Z72.0 Tobacco use; X58.XXXA Exposure to other specified factors, initial encounter; Y93.89 Activity, other specified; Y92.89 Other specified places as the place of occurrence of the external cause; Y99.8 Other external cause status; M79.605 Pain in left leg; I77.1 Stricture of artery; I73.9 Peripheral vascular disease, unspecified ==

== ENCOUNTER → 2025-03-05 | Outpatient (CLI) | payer MEDICARE | END | disposition home or self-care (01) | LOC: WOUNDCARE 01:08 | PROVIDERS: ATTEND Nurse Practitioner Family | DX: L89.524 Pressure ulcer of left ankle, stage 4 (principal); R60.9 Edema, unspecified; I11.0 Hypertensive heart disease with heart failure; I50.9 Heart failure, unspecified; I87.2 Venous insufficiency (chronic) (peripheral); E10.51 Type 1 diabetes mellitus with diabetic peripheral angiopathy without gangrene; E03.9 Hypothyroidism, unspecified; E78.5 Hyperlipidemia, unspecified; K74.60 Unspecified cirrhosis of liver; J44.9 Chronic obstructive pulmonary disease, unspecified; F17.210 Nicotine dependence, cigarettes, uncomplicated; Z79.4 Long term (current) use of insulin; Z79.82 Long term (current) use of aspirin; Z79.899 Other long term (current) drug therapy; Z98.890 Other specified postprocedural states ==

== ENCOUNTER → 2025-03-16 | Outpatient (CLI) | payer MEDICARE | LOC: WOUNDCARE 01:11 | PROVIDERS: ATTEND Nurse Practitioner Family | DX: L89.524 Pressure ulcer of left ankle, stage 4 (principal); L89.620 Pressure ulcer of left heel, unstageable; E10.51 Type 1 diabetes mellitus with diabetic peripheral angiopathy without gangrene; I87.2 Venous insufficiency (chronic) (peripheral); I11.0 Hypertensive heart disease with heart failure; I50.9 Heart failure, unspecified; J44.9 Chronic obstructive pulmonary disease, unspecified; I25.10 Atherosclerotic heart disease of native coronary artery without angina pectoris; E78.5 Hyperlipidemia, unspecified; E03.9 Hypothyroidism, unspecified; K70.30 Alcoholic cirrhosis of liver without ascites; K21.9 Gastro-esophageal reflux disease without esophagitis; F17.210 Nicotine dependence, cigarettes, uncomplicated; Z98.890 Other specified postprocedural states; Z79.82 Long term (current) use of aspirin; Z79.899 Other long term (current) drug therapy ==

== ENCOUNTER → 2025-03-23 | Outpatient (CLI) | payer MEDICARE | END | disposition home or self-care (01) | LOC: WOUNDCARE 00:53 | PROVIDERS: ATTEND Nurse Practitioner Family | DX: L89.524 Pressure ulcer of left ankle, stage 4 (principal); L89.620 Pressure ulcer of left heel, unstageable; I87.2 Venous insufficiency (chronic) (peripheral); R60.9 Edema, unspecified; E10.51 Type 1 diabetes mellitus with diabetic peripheral angiopathy without gangrene; I11.0 Hypertensive heart disease with heart failure; I50.9 Heart failure, unspecified; J44.9 Chronic obstructive pulmonary disease, unspecified; I25.10 Atherosclerotic heart disease of native coronary artery without angina pectoris; E78.5 Hyperlipidemia, unspecified; E03.9 Hypothyroidism, unspecified; K21.9 Gastro-esophageal reflux disease without esophagitis; K70.30 Alcoholic cirrhosis of liver without ascites; F17.210 Nicotine dependence, cigarettes, uncomplicated; Z98.890 Other specified postprocedural states; Z79.82 Long term (current) use of aspirin; Z79.899 Other long term (current) drug therapy ==

== ENCOUNTER → 2025-04-05 | Outpatient (CLI) | payer MEDICARE | END | disposition home or self-care (01) | LOC: WOUNDCARE 02:03 | PROVIDERS: ATTEND Nurse Practitioner Family | DX: L89.524 Pressure ulcer of left ankle, stage 4 (principal); E10.51 Type 1 diabetes mellitus with diabetic peripheral angiopathy without gangrene; I87.2 Venous insufficiency (chronic) (peripheral); R60.9 Edema, unspecified; I11.0 Hypertensive heart disease with heart failure; I50.9 Heart failure, unspecified; J44.9 Chronic obstructive pulmonary disease, unspecified; I25.10 Atherosclerotic heart disease of native coronary artery without angina pectoris; E03.9 Hypothyroidism, unspecified; K21.9 Gastro-esophageal reflux disease without esophagitis; K70.30 Alcoholic cirrhosis of liver without ascites; E78.5 Hyperlipidemia, unspecified; F17.210 Nicotine dependence, cigarettes, uncomplicated; Z98.890 Other specified postprocedural states; Z79.82 Long term (current) use of aspirin; Z79.899 Other long term (current) drug therapy ==

== ENCOUNTER → 2025-04-11 | Outpatient (CLI) | payer MEDICARE | END | disposition home or self-care (01) | LOC: ORTHO 01:21 | PROVIDERS: ATTEND Orthopaedic Surgery | DX: M25.872 Other specified joint disorders, left ankle and foot (principal); M79.672 Pain in left foot ==

== ENCOUNTER → 2025-04-18 | Outpatient (CLI) | payer MEDICARE | END | disposition home or self-care (01) | LOC: WOUNDCARE 01:35 → ZADV 14:32 → WOUNDCARE 14:39 | PROVIDERS: ATTEND Nurse Practitioner Family | DX: L89.524 Pressure ulcer of left ankle, stage 4 (principal); L89.620 Pressure ulcer of left heel, unstageable; E10.51 Type 1 diabetes mellitus with diabetic peripheral angiopathy without gangrene; I87.2 Venous insufficiency (chronic) (peripheral); R60.9 Edema, unspecified; I11.0 Hypertensive heart disease with heart failure; I50.9 Heart failure, unspecified; J44.9 Chronic obstructive pulmonary disease, unspecified; I25.10 Atherosclerotic heart disease of native coronary artery without angina pectoris; E03.9 Hypothyroidism, unspecified; K21.9 Gastro-esophageal reflux disease without esophagitis; K70.30 Alcoholic cirrhosis of liver without ascites; F17.210 Nicotine dependence, cigarettes, uncomplicated; Z98.890 Other specified postprocedural states; Z79.82 Long term (current) use of aspirin; Z79.899 Other long term (current) drug therapy ==

== ENCOUNTER → 2025-05-23 | Emergency (ER) | payer MEDICARE ==
[~2025-05-23] VITALS: Wt 77.1 kg
[~2025-05-23] MED LIST changes: +ANORO ELLIPTA1 EACH INH; +CREON DR 36,001 EAC1 PO; +Lidocaine Hydrochloride 30 ML VIAL SC ONE; +Lidocaine Hydrochloride 5 ML AMP ONE; +METOPROLOL SUC100 M1 PO; +NATURE'S BLEND F1 MG PO; +NICODERM CQ1 EACH TD; +OXYCODONE HCL (IR) 10 MG TABLET PO ONE; +Ondansetron Hydrochloride 4 MG TAB PO ONE; +PANCREAZE PO; +REMODULIN SQ; +ROSUVASTATIN CA10 MG PO; +SILDENAFIL20 M1 PO; +TORSEMIDE20 MG PO; +VITAMIN B150 MG PO
[2025-05-23 23:59] LABS: BASO # 0.1 10*3/uL (0.0-0.1); BASO % 0.8 % (0.0-1.0); EOS # 0.5 10*3/uL (0.0-0.4); EOS % 3.8 % (1.0-4.0); MEAN CELL VOLUME 89.3 fl (80.0-94.0); MEAN CORPUSCULAR HGB 29.2 pg (27.0-31.0); MEAN PLATELET VOLUME 9.9 fl (9.6-12.3); MONO # 0.9 10*3/uL (0.1-1.0); MONO % 6.7 % (3.0-9.0); NEUT # 10.8 10*3/uL (2.3-7.9); NEUT % 76.8 % (47.0-73.0); NUCLEATED RED BLOOD CELL 0.0 % (0.0-0.0); NUCLEATED RED BLOOD CELL 0.0 10*3/uL (0.0-0.0); PLATELET COUNT AUTOMATED 518 10*3/uL (130-400); RED CELL DISTRI WIDTH 18.2 % (0-14.5)
[2025-05-24 00:20] LABS: BUN 9 mg/dl (9-23); SGPT/ALT 50 U/L (5-49)
== END ==
LOC: ED 23:17
PROVIDERS: Emergency Medicine
DX: S72.112A Displaced fracture of greater trochanter of left femur, initial encounter for closed fracture (principal); S01.01XA Laceration without foreign body of scalp, initial encounter; S91.002A Unspecified open wound, left ankle, initial encounter; I25.10 Atherosclerotic heart disease of native coronary artery without angina pectoris; E03.9 Hypothyroidism, unspecified; E11.51 Type 2 diabetes mellitus with diabetic peripheral angiopathy without gangrene; D53.9 Nutritional anemia, unspecified; F17.210 Nicotine dependence, cigarettes, uncomplicated; Z88.8 Allergy status to other drugs, medicaments and biological substances; Z79.899 Other long term (current) drug therapy; Z79.82 Long term (current) use of aspirin; Z79.4 Long term (current) use of insulin; W18.39XA Other fall on same level, initial encounter; Y93.89 Activity, other specified; Y92.89 Other specified places as the place of occurrence of the external cause; Y99.8 Other external cause status

== ENCOUNTER → 2025-06-12 | Outpatient (CLI) | payer MEDICARE ==
[~2025-06-12] MED LIST changes: -Lidocaine Hydrochloride 30 ML VIAL SC ONE; -Lidocaine Hydrochloride 5 ML AMP ONE; -OXYCODONE HCL (IR) 10 MG TABLET PO ONE; -Ondansetron Hydrochloride 4 MG TAB PO ONE
== END | disposition home or self-care (01) ==
LOC: WOUNDCARE 04:39
PROVIDERS: ATTEND Nurse Practitioner Family
DX: L89.524 Pressure ulcer of left ankle, stage 4 (principal); L89.620 Pressure ulcer of left heel, unstageable; S01.80XA Unspecified open wound of other part of head, initial encounter; R60.9 Edema, unspecified; I87.2 Venous insufficiency (chronic) (peripheral); E10.51 Type 1 diabetes mellitus with diabetic peripheral angiopathy without gangrene; I11.0 Hypertensive heart disease with heart failure; I50.9 Heart failure, unspecified; J44.9 Chronic obstructive pulmonary disease, unspecified; I25.10 Atherosclerotic heart disease of native coronary artery without angina pectoris; E78.5 Hyperlipidemia, unspecified; E03.9 Hypothyroidism, unspecified; K70.30 Alcoholic cirrhosis of liver without ascites; K21.9 Gastro-esophageal reflux disease without esophagitis; F17.210 Nicotine dependence, cigarettes, uncomplicated; Z98.890 Other specified postprocedural states; Z79.82 Long term (current) use of aspirin; Z79.899 Other long term (current) drug therapy; X58.XXXA Exposure to other specified factors, initial encounter; Y93.89 Activity, other specified; Y92.89 Other specified places as the place of occurrence of the external cause; Y99.8 Other external cause status

== ENCOUNTER → 2025-06-18 | Outpatient (CLI) | payer MEDICARE | END | disposition home or self-care (01) | LOC: WOUNDCARE 01:26 | PROVIDERS: ATTEND Nurse Practitioner Family | DX: L89.524 Pressure ulcer of left ankle, stage 4 (principal); L89.620 Pressure ulcer of left heel, unstageable; S01.80XD Unspecified open wound of other part of head, subsequent encounter; I87.2 Venous insufficiency (chronic) (peripheral); I11.0 Hypertensive heart disease with heart failure; I50.9 Heart failure, unspecified; E10.51 Type 1 diabetes mellitus with diabetic peripheral angiopathy without gangrene; E03.9 Hypothyroidism, unspecified; J44.9 Chronic obstructive pulmonary disease, unspecified; F17.210 Nicotine dependence, cigarettes, uncomplicated; E78.5 Hyperlipidemia, unspecified; Z79.82 Long term (current) use of aspirin; Z79.4 Long term (current) use of insulin; Z79.899 Other long term (current) drug therapy; Z98.890 Other specified postprocedural states; X58.XXXD Exposure to other specified factors, subsequent encounter ==

== ENCOUNTER → 2025-07-09 | Outpatient (CLI) | payer MEDICARE | END | disposition home or self-care (01) | LOC: WOUNDCARE 00:20 | PROVIDERS: ATTEND Nurse Practitioner Family | DX: L89.524 Pressure ulcer of left ankle, stage 4 (principal); L89.620 Pressure ulcer of left heel, unstageable; I87.2 Venous insufficiency (chronic) (peripheral); E10.51 Type 1 diabetes mellitus with diabetic peripheral angiopathy without gangrene; E03.9 Hypothyroidism, unspecified; I11.0 Hypertensive heart disease with heart failure; I50.9 Heart failure, unspecified; E78.5 Hyperlipidemia, unspecified; I25.10 Atherosclerotic heart disease of native coronary artery without angina pectoris; K74.60 Unspecified cirrhosis of liver; J44.9 Chronic obstructive pulmonary disease, unspecified; K21.9 Gastro-esophageal reflux disease without esophagitis; F17.210 Nicotine dependence, cigarettes, uncomplicated ==

== ENCOUNTER → 2025-07-16 | Outpatient (CLI) | payer MEDICARE | LOC: WOUNDCARE 01:42 | PROVIDERS: ATTEND Nurse Practitioner Family | DX: L89.524 Pressure ulcer of left ankle, stage 4 (principal); L89.620 Pressure ulcer of left heel, unstageable; E10.51 Type 1 diabetes mellitus with diabetic peripheral angiopathy without gangrene; I87.2 Venous insufficiency (chronic) (peripheral); K74.60 Unspecified cirrhosis of liver; E03.9 Hypothyroidism, unspecified; I11.0 Hypertensive heart disease with heart failure; I50.9 Heart failure, unspecified; J44.9 Chronic obstructive pulmonary disease, unspecified; E78.5 Hyperlipidemia, unspecified; I25.10 Atherosclerotic heart disease of native coronary artery without angina pectoris; K21.9 Gastro-esophageal reflux disease without esophagitis; F17.210 Nicotine dependence, cigarettes, uncomplicated ==

== ENCOUNTER → 2025-07-24 | Outpatient (CLI) | payer MEDICARE | END | disposition home or self-care (01) | LOC: WOUNDCARE 03:32 | PROVIDERS: ATTEND Nurse Practitioner Family | DX: L89.524 Pressure ulcer of left ankle, stage 4 (principal); L89.620 Pressure ulcer of left heel, unstageable; I87.2 Venous insufficiency (chronic) (peripheral); E10.51 Type 1 diabetes mellitus with diabetic peripheral angiopathy without gangrene; I11.0 Hypertensive heart disease with heart failure; I50.9 Heart failure, unspecified; E03.9 Hypothyroidism, unspecified; K21.9 Gastro-esophageal reflux disease without esophagitis; J44.9 Chronic obstructive pulmonary disease, unspecified; F17.210 Nicotine dependence, cigarettes, uncomplicated; Z98.890 Other specified postprocedural states; Z79.4 Long term (current) use of insulin; Z79.899 Other long term (current) drug therapy ==

== ENCOUNTER → 2025-07-31 | Outpatient (CLI) | payer MEDICARE | END | disposition home or self-care (01) | LOC: WOUNDCARE 02:16 | PROVIDERS: ATTEND Nurse Practitioner Family | DX: L89.524 Pressure ulcer of left ankle, stage 4 (principal); L89.620 Pressure ulcer of left heel, unstageable; I87.2 Venous insufficiency (chronic) (peripheral); E11.51 Type 2 diabetes mellitus with diabetic peripheral angiopathy without gangrene; I11.0 Hypertensive heart disease with heart failure; I50.9 Heart failure, unspecified; I25.10 Atherosclerotic heart disease of native coronary artery without angina pectoris; E03.9 Hypothyroidism, unspecified; E78.5 Hyperlipidemia, unspecified; K21.9 Gastro-esophageal reflux disease without esophagitis; J44.9 Chronic obstructive pulmonary disease, unspecified; F17.210 Nicotine dependence, cigarettes, uncomplicated; Z98.890 Other specified postprocedural states; Z79.84 Long term (current) use of oral hypoglycemic drugs; Z79.82 Long term (current) use of aspirin; Z79.899 Other long term (current) drug therapy ==

== ENCOUNTER → 2025-08-17 | Outpatient (CLI) | payer MEDICARE | END | disposition home or self-care (01) | LOC: WOUNDCARE 00:24 | PROVIDERS: ATTEND Nurse Practitioner Family | DX: L89.524 Pressure ulcer of left ankle, stage 4 (principal); L89.620 Pressure ulcer of left heel, unstageable; I87.2 Venous insufficiency (chronic) (peripheral); E10.51 Type 1 diabetes mellitus with diabetic peripheral angiopathy without gangrene; K74.60 Unspecified cirrhosis of liver; E03.9 Hypothyroidism, unspecified; I50.9 Heart failure, unspecified; I11.0 Hypertensive heart disease with heart failure; E78.5 Hyperlipidemia, unspecified; I25.10 Atherosclerotic heart disease of native coronary artery without angina pectoris; J44.9 Chronic obstructive pulmonary disease, unspecified; K21.9 Gastro-esophageal reflux disease without esophagitis; F17.210 Nicotine dependence, cigarettes, uncomplicated; F12.90 Cannabis use, unspecified, uncomplicated ==

== ENCOUNTER → 2025-09-12 | Outpatient (CLI) | payer MEDICARE ==
[2025-09-12 12:36] LABS: BASO # 0.0 10*3/uL (0.0-0.1); BASO % 0.4 % (0.0-1.0); EOS # 0.2 10*3/uL (0.0-0.4); EOS % 2.0 % (1.0-4.0); MEAN CELL VOLUME 77.6 fl (80.0-94.0); MEAN CORPUSCULAR HGB 24.3 pg (27.0-31.0); MEAN PLATELET VOLUME 9.2 fl (9.6-12.3); MONO # 0.5 10*3/uL (0.1-1.0); MONO % 6.1 % (3.0-9.0); NEUT # 6.7 10*3/uL (2.3-7.9); NEUT % 79.9 % (47.0-73.0); NUCLEATED RED BLOOD CELL 0.0 % (0.0-0.0); NUCLEATED RED BLOOD CELL 0.0 10*3/uL (0.0-0.0); PLATELET COUNT AUTOMATED 540 10*3/uL (130-400); RED CELL DISTRI WIDTH 21.8 % (0-14.5)
[2025-09-12 13:17] LABS: BUN 9 mg/dl (9-23); SGPT/ALT 17 U/L (5-49)
[2025-09-12 13:18] LABS: VITAMIN D, 25-HYDROXY 64.9 ng/mL (30-100)
== END | disposition home or self-care (01) ==
LOC: LAB 01:05
PROVIDERS: ATTEND Family Medicine
DX: Z01.818 Encounter for other preprocedural examination (principal); J44.9 Chronic obstructive pulmonary disease, unspecified; D50.0 Iron deficiency anemia secondary to blood loss (chronic); K74.00 Hepatic fibrosis, unspecified; I27.20 Pulmonary hypertension, unspecified; E03.9 Hypothyroidism, unspecified; E55.9 Vitamin D deficiency, unspecified; E10.622 Type 1 diabetes mellitus with other skin ulcer